=== PATIENT | male | born 2000 | race Caucasian/White ===

== ENCOUNTER 2022-02-24 05:22 | Emergency (ER) | payer OTHER ==
[~2022-02-24] VITALS: Ht 188 cm; Wt 86.4 kg
[2022-02-24 05:55] VITALS: BP 146/90
[2022-02-24] MEDS ORDERED: AMOX-277 PO (06:23)
[2022-02-24] MEDS ORDERED: HYDR-4798 PO (06:23)
== END 2022-02-24 06:34 | disposition home or self-care (01) ==
LOC: ER 05:22
DX: K04.7 Periapical abscess without sinus (principal)